=== PATIENT | male | born 1990 | race Caucasian/White ===

== ENCOUNTER 2023-08-22 21:20 | Emergency (ER) | payer OTHER, SELFPAY ==
[2023-08-22 21:29] VITALS: BP 135/88; PULSE 91; RESP 20; TEMP 36.9; O2SAT 98; BMI 27.4
[2023-08-22 21:50] LABS: MANUAL DIFF FLAG NO
[2023-08-22 21:51] LABS: Basophils Absolute Auto 0.1 X10*3/uL (0.0-0.2); Basophils Percent Auto 0.9 % (0-2); Eosinophils Absolute Auto 0.5 X10*3/uL (0.0-0.4); Eosinophils Percent Auto 5.3 % (0-4); Hematocrit 43.6 % (42.0-52.0); Hemoglobin 14.6 g/dl (14.0-18.0); Imm Gran Abs Auto 0.01 X10*3/uL (0.00-0.03); Imm Gran Pct Auto 0.1 % (0.0-0.4); Lymphocytes Absolute Auto 2.4 X10*3/uL (1.2-4.9); Lymphocytes Percent Auto 28.4 % (20-40); Mean Corpuscular HGB Conc 33.5 g/dl (31.0-36.0); Mean Corpuscular Hemoglobin 27.5 pg (27.0-33.0); Mean Corpuscular Volume 82.1 fL (80.0-98.0); Monocytes Absolute Auto 0.4 X10*3/uL (0.1-1.2); Monocytes Percent Auto 5.1 % (2-11); Neutrophils Absolute Auto 5.1 x10*3/uL (2.0-8.3); Neutrophils Percent Auto 60.2 % (45-73); Platelet Count 251 X10*3/uL (160-400); Red Blood Count 5.31 X10*6/uL (4.60-5.80); Red Cell Distribution Width 12.4 % (11.0-16.0); White Blood Count 8.4 X10*3/uL (4.8-10.8)
[2023-08-22 22:12] LABS: Alanine Aminotransferase 63 U/L (0-40); Albumin Level 4.2 g/dL (3.5-5.0); Alkaline Phosphatase 55 U/L (39-117); Anion Gap 12 (12-20); Aspartate Amino Transferase 19 U/L (5-37); Bilirubin Direct < 0.2 mg/dL (0.0-0.5); Bilirubin Total 0.2 mg/dL (0.0-1.0); Blood Urea Nitrogen 14 mg/dL (9-16); Calcium 9.3 mg/dL (8.4-10.2); Carbon Dioxide 26 mmol/L (22-29); Chloride 107 mmol/L (96-108); Creatinine Clr Calc Pharmacy 113.5; Estimated Glomerular Filt Rate > 60; Glucose Random 107 mg/dL (60-115); Lipase 16 U/L (8-78); Potassium 3.9 mmol/L (3.3-5.1); Sodium 141 mmol/L (135-145); Total Protein 7.3 g/dL (6.5-8.0)
--- NOTE | 2023-08-23 02:14 | ED.ABDPAIN ---
HPI - Abdominal Pain General Chief Complaint: Abdominal Pain Stated Complaint: upper abd pain Time Seen by Provider: 08/23/23 01:39 Source: patient Mode of arrival: ambulatory History of Present Illness HPI narrative: 32-year-old male who has been having intermittent upper abdominal discomfort that appears to happen after he eats and is associated with mild nausea otherwise no vomiting/fever/chills/diarrhea. Patient states he has been evaluated for this at [facility] where he had lab work/CT of the head as well as chest x-ray. Related Data Allergies Allergy/AdvReac Type Severity Reaction Status Date / Time penicillin V Allergy Unknown Anaphylaxis Verified 08/22/23 21:28 Penicillins [PENICILLINS] Allergy Unknown UNKNOWN Verified 08/22/23 21:28 Review of Systems Review of Systems Pertinent positives and negatives as stated in HPI PMFSH Past Medical History Source: nursing notes reviewed Physical Exam ED Vital Signs: Vital Signs - 24 hr 08/22/23 21:29 Temperature 98.5 F Pulse Rate 91 Respiratory Rate 20 Blood Pressure 135/88 Pulse Oximetry 98 Oxygen Delivery Method Room Air BMI result Body Mass Index 27.4 VITAL SIGNS: Reviewed. GENERAL: Well developed, well nourished, in no acute distress. HEAD: Normocephalic/atraumatic EYES: PERRLA, EOMI EARS: Ext canals without abnormality NOSE: Nares patent bilateral OROPHARYNX: no oral lesions noted, posterior pharynx clear NECK: Supple, no adenopathy LUNGS: Normal breath sounds. No adventitious sounds or accessory muscle use. SpO2<98> CARDIOVASCULAR: Regular rate and rhythm without noted murmurs ABDOMEN: Soft, non-tender, non-distended with bowel sounds. MUSCULOSKELETAL: No tenderness, deformities, or effusions noted on gross inspection. EXTREMITIES: No cyanosis, clubbing or edema. SKIN: Inspection of the skin reveals no rashes NEUROLOGIC: Alert and oriented x 4. Strength and sensation to light touch were grossly intact x 4. Medical Decision Making Medical Decision Making MDM Narrative: 32-year-old male with history and clinical presentation, DDX: Biliary colic, pancreatitis, gastritis I reviewed all investigations and hematologic indices are negative for leukocytosis/left shift/anemia/thrombocytopenia. MrSocorro Indices do not demonstrate JOSE or electrolyte/liver enzyme derangements. I discussed dietary changes with the patient as well as outpatient referral for ultrasound as there is no ultrasound services available overnight here at [facility] [place], I also provided the patient with a referral to follow-up with 1 of our general surgeons for further outpatient workup. Differential Diagnosis Differential Diagnoses: The differential diagnosis associated with the presentation includes Please see the discussion above Admission/Observation Consideration of admission/observation: Escalation of care including admission/observation considered Please see the discussion above Lab Data MDM Lab Attestation statement: I reviewed the patient's lab results. Please see the discussion above 08/22/23 21:44 08/22/23 21:44 Labs: Lab Results 08/22/23 Range/Units 21:44 WBC 8.4 (4.8-10.8) X10*3/uL RBC 5.31 (4.60-5.80) X10*6/uL Hgb 14.6 (14.0-18.0) g/dl Hct 43.6 (42.0-52.0) % MCV 82.1 (80.0-98.0) fL MCH 27.5 (27.0-33.0) pg MCHC 33.5 (31.0-36.0) g/dl RDW 12.4 (11.0-16.0) % Plt Count 251 (160-400) X10*3/uL MPV 11.0 (9.4-12.4) fL Immature Gran % (Auto) 0.1 (0.0-0.4) % Neut % (Auto) 60.2 (45-73) % Lymph % (Auto) 28.4 (20-40) % [place] % (Auto) 5.1 (2-11) % Eos % (Auto) 5.3 H (0-4) % Baso % (Auto) 0.9 (0-2) % Lymph # (Auto) 2.4 (1.2-4.9) X10*3/uL [place] # (Auto) 0.4 (0.1-1.2) X10*3/uL Eos # (Auto) 0.5 H (0.0-0.4) X10*3/uL Baso # (Auto) 0.1 (0.0-0.2) X10*3/uL Abs Immat Gran (auto) 0.01 (0.00-0.03) X10*3/uL Absolute Neuts (auto) 5.1 (2.0-8.3) x10*3/uL Absolute Nucleated RBC 0.000 (0.0-0.012) X10*3/uL Nucleated RBC % (auto) 0.0 (0.0-0.2) /100WBC Sodium 141 (135-145) mmol/L Potassium 3.9 (3.3-5.1) mmol/L Chloride 107 (96-108) mmol/L Carbon Dioxide 26 (22-29) mmol/L Anion Gap 12 (12-20) BUN 14 (9-16) mg/dL Creatinine 0.92 (0.5-1.4) mg/dL Estim Creat Clear Calc 113.5 Estimated GFR > 60 Random Glucose 107 (60-115) mg/dL Calcium 9.3 (8.4-10.2) mg/dL Total Bilirubin 0.2 (0.0-1.0) mg/dL Direct Bilirubin < 0.2 (0.0-0.5) mg/dL AST 19 (5-37) U/L ALT 63 H (0-40) U/L Alkaline Phosphatase 55 (39-117) U/L Total Protein 7.3 (6.5-8.0) g/dL Albumin 4.2 (3.5-5.0) g/dL Lipase 16 (8-78) U/L Discharge Plan Discharge Clinical Impression: Abdominal discomfort in right upper quadrant Patient Disposition: Home, Self-Care Instructions: Low Fat Diet (ED), Abdominal Pain (ED) Additional Instructions: 1. Suspect you may be suffering from biliary colic, recommend diet adjustment to limit the amount of fat content and also recommend byva-iag-[id number] acid relief medications such as Pepcid/Zantac. 2. I have given you a referral to follow-up with 1 of our general surgeons, you can call the office in the morning to find out if your insurance is accepted by the office. Return to the ER for any worsening symptoms Referrals: Azeb Prado MD [Primary Care Provider] - Darrell Fisher MD [Physician] -
[2023-08-23 03:16] VITALS: BP 134/90; PULSE 67; RESP 12; TEMP 36.6; O2SAT 98
== END 2023-08-23 03:17 | disposition home or self-care (01) ==
PROVIDERS: Emergency Provider Student in an Organized Health Care Education/Training Program; PCP Internal Medicine
DX: R10.11 Right upper quadrant pain (principal)
CPT/HCPCS: 36415; 80048; 80076; 83690; 85025; 99283; 99284

== ENCOUNTER 2024-04-22 14:53 | Emergency (ER) | payer OTHER, SELFPAY ==
--- NOTE | ~2024-04-22 | XR_ITS ---
EXAMINATION: XR CHEST CLINICAL INFORMATION: CP, shortness of breath COMPARISON: None available. TECHNIQUE: 2 views of the chest were obtained. FINDINGS: There are low volumes, but no significant abnormality is noted involving the heart, lungs, mediastinum, bony thorax or soft tissues. XR/XR chest 2V IMPRESSION: Low lung volumes. No acute disease. Electronically signed by: Hamlet Ro MD 04/22/2024 03:55 PM [facility]
--- NOTE | 2024-04-22 14:55 | ECG_ITS ---
Test Reason : chest pain Blood Pressure : / mmHG Vent. Rate : 078 BPM Atrial Rate : 078 BPM P-R Int : 138 ms QRS Dur : 072 ms QT Int : 338 ms P-R-T Axes : 013 056 029 degrees QTc Int : 385 ms Normal sinus rhythm Normal ECG When compared with ECG of 16-JUN-2017 02:16, No significant change was found Referred By: Mayra Zuniga Electronically Signed By:YANCI CEJA MD
[2024-04-22 15:09] VITALS: BP 139/81; PULSE 83; RESP 18; TEMP 36.6; O2SAT 98; BMI 28.4
--- NOTE | 2024-04-22 15:09 | ED_ITS ---
HPI - General Adult General Chief complaint: Chest Pain Stated complaint: sob-cp Time Seen by Provider: 04/22/24 15:56 History of Present Illness ED Provider: Pablo TORO narrative: The patient is a 33-year-old male who has a history of asthma and esophageal reflux but is otherwise in generally good health. He does not take any regular medications. He is not on any hormones. 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 The patient says that 3 days ago on Saturday he had an episode of slurred speech, lightheadedness, disorientation, and blurred vision. He went to the emergency room at [facility] and had a large workup. He says they were primarily concerned about the possibility of a stroke. He was ultimately discharged from the emergency room. The patient hypothesized that his symptoms could be related to vaping. He says he has been a regular vaping but last vaped on Saturday night. He says he stopped vaping has a Saturday night because he thought it might be causing the symptoms that prompted him to go to the emergency room at [facility] on Saturday. Today the patient arrived to work at around 11:00 AM. While at work he developed symptoms similar to the symptoms he had had 2 days ago. He developed shortness of breath, left-sided chest pain, dizziness, and blurred vision. He indicates that he felt discomfort in his left upper chest. He says that he looked flushed and his employer told him that he needed to go back to the hospital and so he came here. Related Data Allergies Allergy/AdvReac Type Severity Reaction Status Date / Time penicillin V Allergy Unknown Anaphylaxis Verified 08/22/23 21:28 Penicillins [PENICILLINS] Allergy Unknown UNKNOWN Verified 08/22/23 21:28 shellfish derived Allergy Anaphylaxis Verified 04/22/24 15:12 Review of Systems 2 Review of Systems: Yes all other systems are reviewed and are negative PMFSH Social History Social History Alcohol intake: current Alcohol intake frequency: a few times a month Smoked in Last 30 Days: Yes Use of substances other than those prescribed or required for medical reasons: No Advance Directives: No Advance Directives Information Provided: No Do you have a plan to hurt others: No Plan Physical Exam ED Vital Signs: Vital Signs - 24 hr 04/22/24 15:09 04/22/24 16:05 04/22/24 16:23 Temperature 98 F Pulse Rate 83 73 75 Respiratory Rate 18 18 18 Blood Pressure 139/81 119/72 Pulse Oximetry 98 98 Oxygen Delivery Method Room Air Room Air 04/22/24 16:29 04/22/24 16:56 Temperature 98.2 F 98.2 F Pulse Rate 67 67 Respiratory Rate 20 18 Blood Pressure 115/63 115/63 Pulse Oximetry 99 99 Oxygen Delivery Method Room Air Room Air BMI result Body Mass Index 28.4 Const Other: The patient is awake, alert, pleasant, cooperative he does not appear in any distress. He has the appearance of an ordinarily healthy 33-year-old HENMT Head: Yes normal to inspection Face and sinus: Yes normal facial exam Mouth: Normal oral and palatal mucosa present and moist mucous membranes Eyes Visual Cabrera: normal visual cabrera by confrontation Neck Neck: Yes full ROM and Yes no JVD Chest Other: Palpation of the left upper chest wall anteriorly seems to elicit tenderness and this seems to reproduce the patient's pain. Resp Effort & Inspection: normal respiratory effort Auscultation: clear to auscultation bilaterally Cardio Rate: regular rate Rhythm: regular rhythm Heart sounds: S1 normal heart sound present and S2 normal heart sound present GI Other: Abdomen is soft and nontender Skin Other: Skin is dry and unremarkable Neuro Other: The patient is awake and alert with a normal mental status. Cognition is normal. Cranial nerves are grossly intact. He moves his extremities grossly normally. Extrem Other: No calf swelling or tenderness. No peripheral edema. No asymmetry. Course Course Course Narrative: This is a rapid medical exam performed by Randa Zuniga NP: Additional HPI, ROS, PE not included below will be deferred to primary provider. Patient is a 33- year old male presenting with complaint of dizziness, blurred vision, chest pain since Saturday. Was seen at [facility] and had negative stroke workup. States after discharge he noticed his symptoms worsen when vaping so he stopped vaping Saturday. Pain increases with palpation of left chest. Plan: EKG, labs, cxr Medications Administered Discontinued Medications Generic Name Dose Route Start Last Admin Trade Name Freq PRN Reason Stop Dose Admin Albuterol/Ipratropium 3 ml 04/22/24 16:11 04/22/24 16:23 Albuterol/Iprat 2.5/0.5mg 3 Ml Ampul.Neb INHALE 04/22/24 16:12 3 ml ONCE ONE Administration Ketorolac Tromethamine 30 mg 04/22/24 16:11 04/22/24 16:28 Ketorolac Tromethamine 30 Mg/Ml Vial IM 04/22/24 16:12 30 mg ONCE ONE Administration Medical Decision Making Medical Decision Making [facility] Narrative: The patient is a 33-year-old who describes having episodes of exertional chest pain and shortness of breath as well as dizziness and blurred vision. On physical exam he has some left upper chest wall tenderness that seems to reproduce the patient's pain. Otherwise as physical exam seems very reassuring. He does not seem to have risk factors for early coronary disease. He has a normal EKG. He has an undetectable troponin. He has an undetectable D-dimer. His chest x-ray shows low lung volumes but no acute findings. On physical exam his breath sounds seemed fairly good to me. The patient's symptoms seemed to have come on when he was at work. 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 He had similar symptoms 3 days ago. The patient was given a trial of a DuoNeb updraft to see if this seemed to offer any relief. It did not. I therefore do not think these episodes are asthma related. However given his essentially negative workup and his lack of risk factors for any significant vascular disease or other concerning process I think he may be reassured and discharged. He looked well with unremarkable vital signs. He has a primary care doctor and he is encouraged to follow up with his primary care doctor to discuss these episodes. Lab Data 04/22/24 15:19 04/22/24 15:19 Labs: Lab Results 04/22/24 Range/Units 15:19 WBC 6.9 (4.8-10.8) X10*3/uL RBC 5.42 (4.60-5.80) X10*6/uL Hgb 15.2 (14.0-18.0) g/dl Hct 44.3 (42.0-52.0) % MCV 81.7 (80.0-98.0) fL MCH 28.0 (27.0-33.0) pg MCHC 34.3 (31.0-36.0) g/dl RDW 12.5 (11.0-16.0) % Plt Count 239 (160-400) X10*3/uL MPV 10.7 (9.4-12.4) fL Immature Gran % (Auto) 0.4 (0.0-0.4) % Neut % (Auto) 69.2 (45-73) % Lymph % (Auto) 20.1 (20-40) % [place] % (Auto) 5.2 (2-11) % Eos % (Auto) 4.1 H (0-4) % Baso % (Auto) 1.0 (0-2) % Lymph # (Auto) 1.4 (1.2-4.9) X10*3/uL [place] # (Auto) 0.4 (0.1-1.2) X10*3/uL Eos # (Auto) 0.3 (0.0-0.4) X10*3/uL Baso # (Auto) 0.1 (0.0-0.2) X10*3/uL Abs Immat Gran (auto) 0.03 (0.00-0.03) X10*3/uL Absolute Neuts (auto) 4.8 (2.0-8.3) x10*3/uL Absolute Nucleated RBC 0.000 (0.0-0.012) X10*3/uL Nucleated RBC % (auto) 0.0 (0.0-0.2) /100WBC PT 12.3 (10.9-12.4) SEC INR 1.1 (0.9-1.1) D-Dimer High Sensitivty < 150 NG/ML Sodium 140 (135-145) mmol/L Potassium 4.2 (3.3-5.1) mmol/L Chloride 106 (96-108) mmol/L Carbon Dioxide 27 (22-29) mmol/L Anion Gap 11 L (12-20) BUN 15 (9-16) mg/dL Creatinine 1.16 (0.5-1.4) mg/dL Estim Creat Clear Calc 97.8 Estimated GFR > 60 Random Glucose 111 (60-115) mg/dL Calcium 9.8 (8.4-10.2) mg/dL Total Bilirubin 0.4 (0.0-1.0) mg/dL AST 20 (5-37) U/L ALT 53 H (0-40) U/L Alkaline Phosphatase 52 (39-117) U/L Troponin I High Sens < 2.7 (<3.5-35.0) ng/L Total Protein 7.2 (6.5-8.0) g/dL Albumin 4.4 (3.5-5.0) g/dL Independent Interpretation I performed an independent interpretation of an: EKG Interpretation: EKG at 14:49 shows normal sinus rhythm at 78 beats per minute. It is a normal EKG. Discharge Plan Discharge Clinical Impression: Chest wall pain, Dizziness Patient Disposition: Home, Self-Care Additional Instructions: Your testing in the emergency room today seems very reassuring. Please continue to avoid vaping or any kind of smoking. Think it would be good for you to possibly consider starting some kind of an exercise regimen. Please follow up soon with your regular doctor to discuss these episodes further. Return to the emergency room if you feel significantly worse. Referrals: Matthew Connor MD [Primary Care Provider] - (episoodes of dyspnea and dizziness) Interventions: ED Discharge Assessment Last Done: 04/22/24 16:56 Discharge Date/Time: 04/22/24 16:59 Print Language: Montserratian
[2024-04-22 15:22] LABS: MANUAL DIFF FLAG NO
[2024-04-22 15:24] LABS: Basophils Absolute Auto 0.1 X10*3/uL (0.0-0.2); Eosinophils Absolute Auto 0.3 X10*3/uL (0.0-0.4); Eosinophils Percent Auto 4.1 % (0-4); Hematocrit 44.3 % (42.0-52.0); Hemoglobin 15.2 g/dl (14.0-18.0); Imm Gran Abs Auto 0.03 X10*3/uL (0.00-0.03); Imm Gran Pct Auto 0.4 % (0.0-0.4); Lymphocytes Absolute Auto 1.4 X10*3/uL (1.2-4.9); Lymphocytes Percent Auto 20.1 % (20-40); Mean Corpuscular HGB Conc 34.3 g/dl (31.0-36.0); Mean Corpuscular Volume 81.7 fL (80.0-98.0); Mean Platelet Volume 10.7 fL (9.4-12.4); Monocytes Absolute Auto 0.4 X10*3/uL (0.1-1.2); Monocytes Percent Auto 5.2 % (2-11); Neutrophils Absolute Auto 4.8 x10*3/uL (2.0-8.3); Neutrophils Percent Auto 69.2 % (45-73); Platelet Count 239 X10*3/uL (160-400); Red Blood Count 5.42 X10*6/uL (4.60-5.80); Red Cell Distribution Width 12.5 % (11.0-16.0); White Blood Count 6.9 X10*3/uL (4.8-10.8)
[2024-04-22 15:31] LABS: INTERNATIONAL NORM RATIO 1.1 (0.9-1.1); Prothrombin Time 12.3 SEC (10.9-12.4)
[2024-04-22 15:38] LABS: Alanine Aminotransferase 53 U/L (0-40); Albumin Level 4.4 g/dL (3.5-5.0); Alkaline Phosphatase 52 U/L (39-117); Anion Gap 11 (12-20); Aspartate Amino Transferase 20 U/L (5-37); Bilirubin Total 0.4 mg/dL (0.0-1.0); Blood Urea Nitrogen 15 mg/dL (9-16); Calcium 9.8 mg/dL (8.4-10.2); Carbon Dioxide 27 mmol/L (22-29); Chloride 106 mmol/L (96-108); Creatinine Clr Calc Pharmacy 97.8; Estimated Glomerular Filt Rate > 60; Glucose Random 111 mg/dL (60-115); Potassium 4.2 mmol/L (3.3-5.1); Sodium 140 mmol/L (135-145); Total Protein 7.2 g/dL (6.5-8.0)
[2024-04-22 15:47] LABS: Troponin-I High Sensitivity < 2.7 ng/L (<3.5-35.0)
[2024-04-22 16:05] VITALS: BP 119/72; PULSE 73; RESP 18; O2SAT 98
[2024-04-22 16:23] VITALS: PULSE 75; RESP 18; O2SAT 99
[2024-04-22] MEDS: Albuterol/Iprat 2.5/0.5MG 3 ML AMPUL.NEB INHALE (16:23)
[2024-04-22 16:24] LABS: D Dimer High Sensitivity < 150 NG/ML
[2024-04-22] MEDS: Ketorolac Tromethamine 30 MG/ML VIAL IM (16:28)
[2024-04-22 16:29] VITALS: BP 115/63; PULSE 67; RESP 20; TEMP 36.8; O2SAT 99
[2024-04-22 16:56] VITALS: BP 115/63; PULSE 67; RESP 18; TEMP 36.8; O2SAT 99
== END 2024-04-22 16:59 | disposition home or self-care (01) ==
PROVIDERS: Registered Nurse Emergency; Emergency Provider Emergency Medicine; PCP Internal Medicine
DX: R07.89 Other chest pain (principal); R42 Dizziness and giddiness
CPT/HCPCS: 36415; 71046; 80053; 84484; 85025; 85379; 85610; 93005; 94640; 96372; 99284; 99285; J1885

== ENCOUNTER → 2024-04-22 14:55 | Outpatient (BNV) | payer SELFPAY | PROVIDERS: Emergency Provider Emergency Medicine; PCP Internal Medicine; Visit Provider Internal Medicine Cardiovascular Disease | DX: R07.9 Chest pain, unspecified (principal) | CPT/HCPCS: 93010 ==

== ENCOUNTER 2024-12-15 11:10 | Emergency (ER) | payer SELFPAY ==
--- NOTE | ~2024-12-15 | CT_ITS ---
EXAMINATION: CT HEAD WITHOUT CONTRAST CLINICAL INFORMATION: YAÑEZ x1 week, no hx COMPARISON: None available. TECHNIQUE: Contiguous axial imaging was performed from the skull base to vertex without intravenous administration of contrast. This CT examination was performed using dose optimization techniques as appropriate, variously including the following: *Automated exposure control *Adjustment of mA and/or kV according to patient size (this includes techniques or standardized protocols for targeted exams where dose is matched to indication/reason for exam; i.e. extremities or head) *Use of iterative reconstruction technique DLP: 673. mGy-cm FINDINGS: No acute intracranial hemorrhage, mass effect, midline shift, hydrocephalus or herniation. Rao-white matter differentiation is normal. Posterior cranial fossa contents demonstrated no gross hemorrhage or mass effect. Normal position of the cerebellar tonsils. Sellar/suprasellar region demonstrated no gross masses. Polypoid mucosal thickening, maxillary sinuses. No air-fluid levels in the paranasal sinuses. For pneumatization of the frontal sinuses. Tympanic cavities and mastoid air cells are aerated. Pneumatized petrous apices, congenital. No masses or hemorrhages in the intraconal or extraconal compartments of the orbits. The eyeballs are intact. CT/CT head/brain wo IV con IMPRESSION: No acute or structural brain abnormality by CT. Polypoid maxillary sinus disease. Electronically signed by: Beto Castaneda MD 12/15/2024 02:58 PM EDT
[2024-12-15 11:18] VITALS: BP 136/85; PULSE 86; RESP 16; TEMP 36.1; O2SAT 98; BMI 25.8
--- NOTE | 2024-12-15 11:18 | ED.GENADULT ---
HPI - General Adult General Chief complaint: Headache Stated complaint: YAÑEZ, neck pain, disoriented Time Seen by Provider: 12/15/24 16:04 Source: patient Mode of arrival: ambulatory Limitations: no limitations History of Present Illness ED Provider: Dr. Marianna Amaro HPI narrative: Patient comes to the emergency room complaining of a global headache for about 1 week. Patient states that he has been taking Tylenol and ibuprofen with no relief. Patient complaining of unassisted sensitivity,. Patient states that he chronically has blurred vision especially when he does not wear his glasses. Patient denies any neck pain or stiffness. No fever or chills. Complaining of nausea but no vomiting. Patient states that today at work he was making several mistakes and that is what made him worry and therefore came to the emergency room. Related Data Previous Rx's ?Medication ?Instructions ?Recorded ketorolac 10 mg tablet 10 mg PO Q8H PRN pain #12 tabs 12/15/24 ondansetron HCl 4 mg tablet 4 mg PO Q8H PRN nausea and 12/15/24 vomiting #10 tabs sumatriptan succinate 50 mg tablet See Rx Instructions PO .COMPLEX 12/15/24 #10 tabs Allergies Allergy/AdvReac Type Severity Reaction Status Date / Time penicillin V Allergy Unknown Anaphylaxis Verified 12/15/24 11:20 Penicillins (PENICILLINS) Allergy Unknown UNKNOWN Verified 12/15/24 11:20 shellfish derived Allergy Anaphylaxis Verified 12/15/24 11:20 Review of Systems Review of Systems: Constitutional : No Weight loss, No Fever, No Chills, No Night Sweats, No Fatigue, No Malaise ENT/Mouth : No Hearing loss, No Ear Pain, No Nasal Congestion, No Sinus Pain, No Hoarseness, No sore throat, No Rhinorrhea, No Swallowing Difficulty Eyes: No Eye Pain, No Swelling, No Redness, No Foreign Body, No Discharge, complaining of blurred vision when the patient is not wearing his glasses Cardiovascular : No Chest Pain, No SOB, No Dyspnea on Exertion, No Orthopnea, No Edema, No Palpitations Respiratory : No Cough, No Sputum, No Wheezing, No Smoke Exposure, No Dyspnea Gastrointestinal : Complaining of Nausea, No Vomiting, No Diarrhea, No Constipation, No abdominal Pain, No Hematochezia, No Melena Genitourinary : no irregular bleeding, No Dysuria, No Urinary Frequency, No Hematuria, No Urinary Incontinence, No Urgency, No Flank Pain, No Urinary Flow Changes, No Hesitancy Musculoskeletal : No joint pain, No Myalgias, No Joint Swelling Skin : No Skin Lesions, No rash Neuro : No Weakness, No Numbness, No Paresthesias, No Loss of Consciousness, No Dizziness, complaining of a Headache Psych : No Anxiety/Panic, No Depression, No SI/HI/AH/VH, No Social Issues, Heme/Lymph: No Bruising, No Bleeding,No Lymphadenopathy Endocrine : No Polyuria, No Polydipsia, No Temperature Intolerance [facility] Social History Social History Alcohol intake: current Alcohol intake frequency: a few times a month Do you have a plan to hurt others: No Plan Physical Exam ED Vital Signs: Vital Signs - 24 hr 12/15/24 11:18 12/15/24 15:59 Temperature 97 F 97.9 F Pulse Rate 86 81 Respiratory Rate 16 14 Blood Pressure 136/85 124/73 Pulse Oximetry 98 98 Oxygen Delivery Method Room Air Room Air BMI result Body Mass Index 25.8 Const Other: Appearance: Alert. Oriented X3. No acute distress. well-appearing, coherent Eyes: Pupils equal, round and reactive to light. does not seem to have photophobia at this time ENT: Pharynx normal. Neck: Normal inspection. Neck supple. No lymph nodes noted. No crepitus, normal range of motion with flexion and extension, no stiffness CVS: Normal heart rate and rhythm. Pulses normal. Normal S1 and S2 Respiratory: No respiratory distress. Breath sounds normal. No Wheezing. No rales Abdomen: Soft and nontender. No rigidity. No distention. Skin: Skin warm and dry. Normal skin color. Normal skin turgor. Extremities: No lower extremity edema. No Lacerations. No Rash Neuro: Oriented X 3. No motor deficit. No sensory deficit. Moving all extremities. No slurred speech. CN 2 through 12 grossly intact, neurologically intact Psych: calm, cooperative, normal affect Course Course Course Narrative: 12/15/24 1118 LILIANA Modi This is a Rapid Medical Examination (RME) performed by Ryan Evans PA-C in triage. Full HPI, ROS, assessment and treatment plan per primary provider in the Main ED. Hx: 34 yo M here for eval of headache and neck pain x1 week. feels disoriented starting today. reports fatigue, photosensitivity, blurred vision x1 week. no head injury. reports twitch from right eye x3-4 months. taking advil that somewhat relieves symptoms. Plan: Medical Decision Making Medical Decision Making [facility] Narrative: my interpretation of labs: No significant abnormality in patient's hematology, chemistry, normal LFTs, normal TSH, normal ESR and CRP. Serology negative for influenza COVID RSV. CT scan of the head does not show any acute abnormalities. Patient's physical exam is unremarkable, no signs of meningitis. Discussed with the patient he likely has a tension headache versus migraine headache . Patient was given an IM injection of ketorolac, p.o. Fioricet and Reglan. Patient instructed to have close follow-up with his primary care physician. Differential Diagnosis Differential Diagnoses: The differential diagnosis associated with the presentation includes ( Tension headache, migraine headache, intracranial bleed, intracranial mass) Admission/Observation Consideration of admission/observation: Escalation of care including admission/observation considered ( given patient's length of symptoms, observation was considered) Lab Data [facility] Lab Attestation statement: I reviewed the patient's lab results. 12/15/24 12:15 12/15/24 12:16 Labs: Lab Results 12/15/24 12/15/24 Range/Units 12:15 12:16 WBC 7.3 (4.8-10.8) X10*3/uL RBC 5.25 (4.60-5.80) X10*6/uL Hgb 14.4 (14.0-18.0) g/dl Hct 43.2 (42.0-52.0) % MCV 82.3 (80.0-98.0) fL MCH 27.4 (27.0-33.0) pg MCHC 33.3 (31.0-36.0) g/dl RDW 12.8 (11.0-16.0) % Plt Count 239 (160-400) X10*3/uL MPV 11.2 (9.4-12.4) fL Immature Gran % (Auto) 0.4 (0.0-0.4) % Neut % (Auto) 67.1 (45-73) % Lymph % (Auto) 23.0 (20-40) % [place] % (Auto) 4.5 (2-11) % Eos % (Auto) 4.0 (0-4) % Baso % (Auto) 1.0 (0-2) % Lymph # (Auto) 1.7 (1.2-4.9) X10*3/uL [place] # (Auto) 0.3 (0.1-1.2) X10*3/uL Eos # (Auto) 0.3 (0.0-0.4) X10*3/uL Baso # (Auto) 0.1 (0.0-0.2) X10*3/uL Abs Immat Gran (auto) 0.03 (0.00-0.03) X10*3/uL Absolute Neuts (auto) 4.9 (2.0-8.3) x10*3/uL Absolute Nucleated RBC 0.000 (0.0-0.012) X10*3/uL Nucleated RBC % (auto) 0.0 (0.0-0.2) /100WBC ESR 4 (0-15) MM/HR Sodium 141 (135-145) mmol/L Potassium 4.1 (3.3-5.1) mmol/L Chloride 105 (96-108) mmol/L Carbon Dioxide 28 (22-29) mmol/L Anion Gap 12 (12-20) BUN 14 (9-16) mg/dL Creatinine 1.02 (0.5-1.4) mg/dL Estim Creat Clear Calc 100.5 Estimated GFR > 60 Random Glucose 132 H (60-115) mg/dL Calcium 9.3 (8.4-10.2) mg/dL Magnesium 2.0 (1.6-2.6) mg/dL Total Bilirubin 0.4 (0.0-1.0) mg/dL AST 26 (5-37) U/L ALT 92 H (0-40) U/L Alkaline Phosphatase 48 (39-117) U/L C-Reactive Protein 0.26 (< or = 0.50) mg/dL Total Protein 6.9 (6.5-8.0) g/dL Albumin 4.4 (3.5-5.0) g/dL TSH 0.63 (0.32-4.0) uIU/mL Influenza Type A (PCR) NEGATIVE (Negative) Influenza Type B (PCR) NEGATIVE (Negative) RSV RNA Qual (PCR) NEGATIVE (Negative) SARS-CoV-2 RNA (RT-PCR) NEGATIVE (Negative) Independent Interpretation I performed an independent interpretation of an: CT Scan Radiology Impression Discussion of test interpretation with radiology: I have reviewed the radiologist's reading. Radiologist Impression: No acute intracranial hemorrhage, mass effect, midline shift, hydrocephalus or herniation. Rao-white matter differentiation is normal. Posterior cranial fossa contents demonstrated no gross hemorrhage or mass effect. Normal position of the cerebellar tonsils. Sellar/suprasellar region demonstrated no gross masses. Polypoid mucosal thickening, maxillary sinuses. No air-fluid levels in the paranasal sinuses. For pneumatization of the frontal sinuses. Tympanic cavities and mastoid air cells are aerated. Pneumatized petrous apices, congenital. No masses or hemorrhages in the intraconal or extraconal compartments of the orbits. The eyeballs are intact Critical Care Time Critical Care Time Critical Care Time: Yes Total Critical Care Time: 35 Attestation: I have personally provided critical care time. Time includes review of lab data, radiology results, discussion with consultants, and monitoring for potential decompensation. Intervention performed as documented. Discharge Plan Discharge Clinical Impression: Migraine Patient Disposition: Home, Self-Care Instructions: Migraine Headache (ED) Additional Instructions: Please follow-up with your primary care physician tomorrow. If you have any worsening or new symptoms, please return to the emergency room or call 911 Prescriptions: New ketorolac 10 mg tablet 10 mg PO Q8H PRN (Reason: pain) Qty: 12 0RF Rx Instructions: do not use this medication with NSAIDs, only Tylenol and sumatriptan if needed ondansetron HCl 4 mg tablet 4 mg PO Q8H PRN (Reason: nausea and vomiting) Qty: 10 0RF sumatriptan succinate 50 mg tablet See Rx Instructions .ROUTE .COMPLEX Qty: 10 0RF Rx Instructions: take 1 tab at onset of headache; if no relief may repeat 1 tab after at least 2 hrs; max = 4 tabs/24 hr Print Language: [place]
[2024-12-15 12:21] LABS: MANUAL DIFF FLAG NO
[2024-12-15 12:24] LABS: Hematocrit 43.2 % (42.0-52.0); Hemoglobin 14.4 g/dl (14.0-18.0); Imm Gran Abs Auto 0.03 X10*3/uL (0.00-0.03); Imm Gran Pct Auto 0.4 % (0.0-0.4); Lymphocytes Absolute Auto 1.7 X10*3/uL (1.2-4.9); Mean Corpuscular HGB Conc 33.3 g/dl (31.0-36.0); Mean Corpuscular Hemoglobin 27.4 pg (27.0-33.0); Mean Corpuscular Volume 82.3 fL (80.0-98.0); NRBC Abs Auto 0.000 X10*3/uL (0.0-0.012); NRBC Pct Auto 0.0 /100WBC (0.0-0.2); Platelet Count 239 X10*3/uL (160-400); Red Blood Count 5.25 X10*6/uL (4.60-5.80); White Blood Count 7.3 X10*3/uL (4.8-10.8)
[2024-12-15 12:47] LABS: Alanine Aminotransferase 92 U/L (0-40); Albumin Level 4.4 g/dL (3.5-5.0); Alkaline Phosphatase 48 U/L (39-117); Anion Gap 12 (12-20); Aspartate Amino Transferase 26 U/L (5-37); Blood Urea Nitrogen 14 mg/dL (9-16); Calcium 9.3 mg/dL (8.4-10.2); Carbon Dioxide 28 mmol/L (22-29); Chloride 105 mmol/L (96-108); Creatinine Clr Calc Pharmacy 100.5; Estimated Glomerular Filt Rate > 60; Magnesium 2.0 mg/dL (1.6-2.6); Potassium 4.1 mmol/L (3.3-5.1); Sodium 141 mmol/L (135-145); Total Protein 6.9 g/dL (6.5-8.0)
[2024-12-15 13:09] LABS: Resp Syncy Virus RNA Qual PCR NEGATIVE (Negative); SARS COV2 PCR INHOUSE NEGATIVE (Negative)
[2024-12-15 15:59] VITALS: BP 124/73; PULSE 81; RESP 14; TEMP 36.6; O2SAT 98
[2024-12-15] MEDS: Butalb/Acetamin/Caff 50/325/40 TABLET 1 TAB PO (16:34)
[2024-12-15 16:37] VITALS: BP 124/73; PULSE 81; RESP 14; TEMP 36.6; O2SAT 98
--- OUTSIDE RECORDS SUMMARY | 2024-12-15 16:50 | XMS_ITS | Clinical Summary ---
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 Role Phone Unavailable Primary Care Provider Unavailabl e Social History Tobacco Use Types Packs/Day Years Used Date Smoking Tobacco: Never Assessed Sex and Gender Information Value Date Recorded Sex Assigned at Not on file Legal Sex Male 12:48 PM EST Gender Identity Not on file Sexual Orientation Not on file Plan of Treatment Health Maintenance Due Date Last Done Comments DTaP,Tdap,and Td Vaccines (1 - Tdap) 08/30/2011 Hepatitis B Vaccines (1 of 3 - 19+ 3-dose series) 08/30/2011 Depression Screening 01/27/2024 HIV Screening 01/27/2024 Hepatitis C Screening 01/27/2024 Social Influencers of Health Screening 01/27/2024 COVID-19 Vaccine (1 - 2023-2 5 season) 2024 Influenza Vaccine (#1) 2025 HIB Vaccines Aged Out No longer eligi ble based on patient's age to complete this topic HPV Vaccines Aged Out No longer eligi ble based on patient's age to complete this topic Hepatitis A Vaccines Aged Out No long er eligible based on patient's age to complete this topic IPV Vaccines Aged Out No longer eligi ble based on patient's age to complete this topic MMR Vaccines Aged Out No longer eligi ble based on patient's age to complete this topic Meningococcal ACWY Vaccine Aged Out N o longer eligible based on patient's age to complete this topic Meningococcal B Vaccine Aged Out No l onger eligible based on patient's age to complete this topic Pneumococcal Vaccine: Pediat rics (0 to 5 Years) and At-Risk Patients (6 to 49 Years) Aged Out No longer eligible b ased on patient's age to complete this topic RSV Immunization Patients Un mary lou 20 months Aged Out No longer eligible b ased on patient's age to complete this topic Varicella Vaccines Aged Out No longer eligible based on patient's age to complete this topic
--- OUTSIDE RECORDS SUMMARY | 2024-12-15 16:50 | XMS_ITS | Clinical Summary ---
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 Name Role Phone Unavailable Primary Care Provider Unavailabl e Allergies Active Allergy Reactions Criticality Noted Date Comments Penicillins Unknown High 05/23/2022 Shrimp Flavor Agent (Non-Screening) 05/23/2022 Throat gets itchy and uncomfortable Medications No known medications Active Problems Problem Noted Date Diagnosed Date Hypoglycemia 05/23/2022 Asthma 05/23/2022 Encounters Date Type Department Care Team Description 09/17/2024 10:00 AM EDT Immunization [facility] [address] [place] [address] Sherlyn Ruiz LPN Encounter for immunization (Primary Dx) 09/17/2024 Travel from Last 3 Months Immunizations Immunization Administration Dates Next Due HepB-CpG 10/20/2024,09/17/2024 Influenza injectable quadrivalent preservative f ree 04/07/2022,06/07/2017 Tdap 09/07/2021 Varicella 09/17/2024,08/04/2024 Family History Medical History Relation Name Comments Cataracts Paternal Grandmother Relation Name Status Comments Paternal Grandmother Social History Tobacco Use Types Packs/Day Years Used Date Smoking Tobacco: Former Cigarettes 0.5 2 0 01/2020 - 01/2022 Tobacco Cessation:Counseling Given: Not Answered Housing Stability Answer Date Recorded What is your housing situation today? I have shaun vaughn 04/02/[address] you li ve. Do you have problems with any of the following? None of the above 04/02/2023 Food Insecurity Answer Date Recorded Within the past 12 months, y ou worried that your food would run out before you got money to buy more: Never True 04/02/2023 Within the past 12 months,th e food you bought just didn't last and you didn't have enough money to get more: Never True Transportation Answer Date Recorded In the past 12 months, has l ack of transportation kept you from medical appts, meetings, work or from getting things needed for daily living? No 04/02/2023 Utilities Answer Date Recorded In the past 12 months, has t he electric, gas, oil or water company threatened to shut off services in your home? No 04/02/2023 Sex and Gender Information Value Date Recorded Sex Assigned at Male 07/02/2022 6:47 AM EST Legal Sex Male 12:45 PM EST Gender Identity Male 07/02/2022 6:47 AM EST Sexual Orientation Choose not to disclose 2022 6:47 AM EST Last Filed Vital Signs Vital Sign Reading Time Taken Comments Blood Pressure 114/80 05/23/2022 2:02 PM EST Pulse - - Temperature 36.2 C (97.2 F) 05/23/2022 2:02 PM EST Respiratory Rate - - Oxygen Saturation - - Inhaled Oxygen Concentration - - Weight - - Height - - Body Mass Index - - Plan of Treatment Health Maintenance Due Date Last Done Comments Depression Screening 1992 HIV Screening 1992 Disability Screening 1992 Alcohol/Substance Use Screening 2004 Tobacco Screening 2004 Family Planning (PISQ) 08/30/2007 HPV Vaccines (1 - Male 3-dos e series) 08/30/2007 Hepatitis C Screening 2010 Pneumococcal Vaccine: Pediatrics (0 to 5 Years) and At-Risk Patients (6 to 49) Years (1 of 2 - PCV) 08/30/2011 SDOH Screening 05/23/2023 05/23/2022 COVID-19 Vaccine (4 - 2023-2 5 season) 2024 04/07/2022, 10/24/2020, 09/26/2020 Influenza Vaccine (#1) 2025 , 06/07/2017 DTaP/Tdap/Td Vaccines (2 - T d or Tdap) 09/08/2031 09/07/2021 Zoster Vaccines (1 of 2) 2042 RSV Patients and Patients Aged 60 years or older (1 - 1-dose 75+ series) 08/30/2067 Hepatitis B Vaccines Completed 10/20/2024, 09/17/2024 HIB Vaccines Aged Out No longer eligi [...] patient's age to complete this topic Meningococcal Vaccine Aged Out No saqib mann eligible based on patient's age to complete this topic RSV under 20 months Aged Out No longe r eligible based on patient's age to complete this topic Rotavirus Vaccines Aged Out No longer eligible based on patient's age to complete this topic Insurance [facility] Care Teams Machine Precision Etcher Relationship Specialty Start Date End Date [facility] [place], [place] Family Medicine 05/16/22
== END 2024-12-15 16:38 | disposition home or self-care (01) ==
PROVIDERS: Physician Assistant Medical; Emergency Provider Emergency Medicine; PCP Internal Medicine
DX: G43.909 Migraine, unspecified, not intractable, without status migrainosus (principal); M54.2 Cervicalgia; Z03.818 Encounter for observation for suspected exposure to other biological agents ruled out
CPT/HCPCS: 70450; 80053; 83735; 84443; 85025; 85652; 86140; 87637; 96372; 99283; 99291; J1885

== ENCOUNTER → 2024-12-15 11:27 | Outpatient (BNV) | payer SELFPAY | PROVIDERS: PCP Internal Medicine; Visit Provider Radiology Diagnostic Radiology | DX: J33.1 Polypoid sinus degeneration (principal) | CPT/HCPCS: 70450 ==